=== PATIENT | male | born 1965 | race Caucasian/White ===

== ENCOUNTER 2017-09-26 16:05 | Emergency (ER) | payer MEDICAID ==
[2017-09-26] MEDS ORDERED: ASPIRIN 81 MG PO STA (16:17)
[2017-09-26] MEDS ORDERED: MORPHINE SULFATE 2 MG/ML SYRINGE IVP STA (16:17)
[2017-09-26] MEDS ORDERED: NITROGLYCERIN OINT 1 INCH/GM PACKET TOPICAL STA (16:17)
[2017-09-26] MEDS ORDERED: ONDANSETRON 4 MG/2 ML VIAL IVP STA (16:17)
[2017-09-26] MEDS ORDERED: SODIUM CHLORIDE 0.9% 1,000 ML IV STA (16:17)
--- NOTE | 2017-09-26 16:24 | ED ---
Chest Pain HPI - General Chief Complaint: Chest Pain Stated Complaint: Chest pain Time Seen by Provider: 09/26/17 16:11 Source: patient Mode of arrival: ambulatory Limitations: no limitations - History of Present Illness Initial Comments: 15-20 years old male comes in with a chest pressure for about 12 hours now with chest pressure is not affected by exertion he denies any nausea vomiting or shortness of breath. He denies any history of coronary artery disease nor diabetes hypertension denies any tobacco use or any alcohol use. His family history is quite significant for coronary artery disease his dad had [address] mom had hypertension and diabetes and she of pancreatic cancer. Denies any headaches no neck stiffness has chest pressure no shortness of breath no abdominal pain no frequency urgency dysuria no TIA or CVA like symptoms - Related Data Home Medications Medication Instructions Recorded Confirmed No Known Home Medications 09/26/17 09/26/17 Allergies Allergy/AdvReac Type Severity Reaction Status Date / Time No Known Allergies Allergy Verified 09/26/17 16:42 Review of Systems ROS Statement: Those systems with pertinent positive or pertinent negative responses have been documented in the HPI. ROS Other: All systems not noted in ROS Statement are negative. EKG Findings - EKG Comments: EKG Findings:: EKG is normal sinus ventricular rate is 84 GA interval is 136 QRS duration is 94 QT/QTc is 350/413 review of this EKG does not reveal any ST elevation or ST depression noticed a millimeter of ST off the baseline and aVF Past Medical History Past Medical History: No Reported History History of Any Multi-Drug Resistant Organisms: None Reported Past Surgical History: No Surgical Hx Reported Past Psychological History: No Psychological Hx Reported Smoking Status: Never smoker Past Alcohol Use History: None Reported Past Drug Use History: None Reported General Exam - General Exam Comments Initial Comments: General: The patient is awake and alert, in no distress, and does not appear acutely ill. Skin: Skin is warm and dry and no rashes or lesions are noted. Eye: Pupils are equal, round and reactive to light, extra-ocular movements are intact; there is normal conjunctiva bilaterally. Ears, nose, mouth and throat: There are moist mucous membranes and no oral lesions. Neck: The neck is supple, there is no tenderness or JVD. Cardiovascular: There is a regular rate and rhythm. No murmur, rub or gallop is appreciated. Respiratory: To auscultation bilateral, no wheezing no rhonchi no distress respiratory meadows noticed Gastrointestinal: Soft, non-distended, non-tender abdomen without masses or organomegaly noted. There is no rebound or guarding present. Bowel sounds are unremarkable. Back: There is no tenderness to palpation in the midline. There is no obvious deformity. Musculoskeletal: Normal ROM, no tenderness, There is no pedal edema. There is no calf tenderness or swelling. No cords were appreciated. Neurological: CN II-XII intact, Cranial nerves III through XII are intact. There are no obvious motor or sensory deficits. Coordination appears grossly intact. Speech is normal. Psychiatric: Cooperative, appropriate mood & affect, normal judgment. Limitations: no limitations Course Vital Signs 09/26/17 09/26/17 16:08 17:09 Temperature 98.4 F Pulse Rate 91 90 Respiratory 18 16 Rate Blood Pressure 131/83 114/74 O2 Sat by Pulse 98 97 Oximetry Patient is reassessed at term 1717 is the troponin CBC and chemistries are all unremarkable Ideally he needs admission for observation for 3 sets of cardiac markers and cardiology consult His family history especially his dad has a history of heart disease and his mom is diabetic and hypertensive but he has a special care or special needs child at home and his sister Vero our RN in ER said she'll make sure that he see parking worker as outpatient and get the follow- up get started Disposition Clinical Impression: Chest pain, Family history of heart disease Disposition: HOME SELF-CARE Condition: Good Instructions: Chest Pain (ED) Additional Instructions: Advised to take aspirin 81 mg by mouth daily, avoid exertion still cleared by parking worker and numb and nitro 0.4 mg sublingual as needed Is patient prescribed a controlled substance at d/c from ED?: No Referrals: Renny Bee MD [Primary Care Provider] - 1-2 days
[2017-09-26 16:35] LABS: Basophils # (A) 0.1 k/uL (0-0.2); Basophils % (A) 1 %; Eosinophils # (A) 0.3 k/uL (0-0.7); Eosinophils % (A) 3 %; HGB 15.5 gm/dL (13.0-17.5); Lymphocytes % (A) 21 %; MCH 30.9 pg (25.0-35.0); MCHC 34.4 g/dL (31.0-37.0); MCV 89.7 fL (80.0-100.0); Mean Platelet Volume 7.7; Monocytes # (A) 0.5 k/uL (0-1.0); Monocytes % (A) 5 %; Neutrophils # (A) 6.5 k/uL (1.3-7.7); Neutrophils % (A) 69 %; Platelet Count 225 k/uL (150-450); RBC 5.01 m/uL (4.30-5.90); RDW 12.3 % (11.5-15.5); WBC 9.4 k/uL (3.8-10.6)
[2017-09-26 16:45] LABS: ALT 35 U/L (21-72); AST 31 U/L (17-59); Albumin 4.6 g/dL (3.5-5.0); Alkaline Phosphatase 58 U/L (38-126); Amylase 64 U/L (30-110); Anion Gap 11 mmol/L; Blood Urea Nitrogen 14 mg/dL (9-20); Calcium 9.7 mg/dL (8.4-10.2); Carbon Dioxide 21 mmol/L (22-30); Chloride 109 mmol/L (98-107); Glucose 99 mg/dL (74-99); Lipase 57 U/L (23-300); Magnesium 2.1 mg/dL (1.6-2.3); Potassium 4.8 mmol/L (3.5-5.1); Sodium 141 mmol/L (137-145); Total Bilirubin 1.6 mg/dL (0.2-1.3); Total Protein 7.3 g/dL (6.3-8.2)
[2017-09-26 16:46] LABS: Partial Thromboplastin Time 24.6 sec (22.0-30.0); Prothrombin Time 10.2 sec (9.0-12.0)
[2017-09-26 16:47] LABS: Creatine Kinase 85 U/L (55-170)
--- NOTE | 2017-09-26 16:57 | XR ---
EXAMINATION TYPE: XR chest 2V DATE OF EXAM: 09/26/2017 COMPARISON: NONE HISTORY: Chest pressure TECHNIQUE: Frontal and lateral views of the chest are obtained. FINDINGS: There is no focal air space opacity, pleural effusion, or pneumothorax seen. The cardiac silhouette size is within normal limits. The osseous structures are intact. Mild multilevel degener ative changes of the thoracic spine are seen. IMPRESSION: No acute cardiopulmonary process.
[2017-09-26 17:00] LABS: Creatine Kinase MB 0.9 ng/mL (0.0-2.4); Troponin I <0.012 ng/mL (0.000-0.034)
[2017-09-26 17:50] VITALS: BP 115/67; PULSE 94; RESP 18; TEMP 98.9
== END 2017-09-26 17:50 | disposition home or self-care (01) ==
LOC: EC 16:05
DX: R07.9 Chest pain, unspecified (principal); Z82.49 Family history of ischemic heart disease and other diseases of the circulatory system; Z53.20 Procedure and treatment not carried out because of patient's decision for unspecified reasons
CPT/HCPCS: 36415; 71046; 80053; 82150; 82550; 82553; 83690; 83735; 83880; 84484; 85025; 85610; 85730; 93005; 96360; 99285

== ENCOUNTER → 2017-11-16 | Outpatient (CLI) | payer MEDICAID ==
--- NOTE | 2017-11-16 13:01 | ECHOF ---
Referral Reason:E75.2 Other sphingolipidosis R07.89 Chest pain MEASUREMENTS -------- HEIGHT: 185.4 cm WEIGHT: 88.5 kg BP: 108/51 RVIDd: 3.1 cm (< 3.3) IVSd: 1.1 cm (0.6 - 1.1) LVIDd: 4.9 cm (3.9 - 5.3) LVPWd: 1.2 cm (0.6 - 1.1) IVSs: 1.8 cm LVIDs: 3.0 cm LVPWs: 1.5 cm LA Diam: 3.5 cm (2.7 - 3.8) LAESV Index (A-L): 23.99 ml/m Ao Diam: 3.4 cm (2.0 - 3.7) AV Cusp: 2.7 cm (1.5 - 2.6) MV EXCURSION: 23.080 mm (> 18.000) MV EF SLOPE: 132 mm/s (70 - 150) EPSS: 0.5 cm MV E Ray: 0.58 m/s MV DecT: 327 ms MV A Ray: 0.57 m/s MV E/A Ratio: 1.02 RAP: 5.00 mmHg RVSP: 21.28 mmHg FINDINGS -------- Sinus rhythm. This was a technically good study. The left ventricular size is normal. There is borderline concentric left ventricular hypertrophy. Overall left ventricular systolic function is normal with, an EF between 55 - 60 %. The right ventricle is normal in size. Normal LA size by volume 22+/-6 ml/m2. The right atrium is normal in size. The aortic valve is trileaflet and appears structurally normal. The mitral valve is normal. Mild mitral regurgitation is present. Mild tricuspid regurgitation present. Right ventricular systolic pressure is normal at < 35 mmHg. Trace/mild (physiologic) pulmonic regurgitation. The aortic root size is normal. Normal inferior vena cava with normal inspiratory collapse consistent with estimated right atrial pre ssure of 5 mmHg. There is no pericardial effusion. CONCLUSIONS -------- 1. Sinus rhythm. 2. This was a technically good study. 3. The left ventricular size is normal. 4. There is borderline concentric left ventricular hypertrophy. 5. Overall left ventricular systolic function is normal with, an EF between 55 - 60 %. 6. Normal LA size by volume 22+/-6 ml/m2. 7. The aortic valve is trileaflet and appears structurally normal. 8. Mild mitral regurgitation is present. 9. Mild tricuspid regurgitation present. 10. Right ventricular systolic pressure is normal at < 35 mmHg. 11. Trace/mild (physiologic) pulmonic regurgitation. 12. The aortic root size is normal. 13. Normal inferior vena cava with normal inspiratory collapse consistent with estimated right atrial pressure of 5 mmHg. 14. There is no pericardial effusion. ORACLE DBA: Shayy Cota RDCS
--- NOTE | 2017-11-16 14:11 | ECHOS ---
STRESS ECHOCARDIOGRAM INDICATIONS: Physical, family history. MEDICATIONS: None. BASELINE HEART RATE: 81 BASELINE BLOOD PRESSURE: 108/51 MAXIMUM HEART RATE: 164 MAXIMUM BLOOD PRESSURE: 177/73 85% MPHR: 143 100% MPHR: 163 METS: 11.7 MAXIMUM STAGE REACHED: III TOTAL EXERCISE TIME: 10:01 CLINICAL INFORMATION: Baseline rhythm is sinus mechanism, rate of 81, normal axis, intervals, normal echocardiogram. Baseline blood pressure 108/51 mmHg. Patient exercised on Pedro protocol for 10 minutes reaching peak rate of 164 beats per minute which is equal to 99% maximum predicted heart rate. Peak blood pressure 177/73 mmHg. Test was terminated secondary to fatigue, there was no chest pain. Electrocardiographic monitoring revealed no evidence of diagnostic ischemic ST deviation. FINDINGS: Baseline echocardiogram revealed normal wall motion. At peak exercise, there was normal wall motion and augmentation with no hypokinesis or dyskinesis. CONCLUSION: 1. Good exercise tolerance with normal electrocardiographic response to exercise. 2. Normal stress echocardiogram with no evidence of stress-induced ischemia. MMODL / IJN: [id number] /
== END | disposition home or self-care (01) ==
LOC: RADECHMAIN 08:33
PROVIDERS: ATTEND Internal Medicine Interventional Cardiology
DX: R07.89 Other chest pain (principal); I08.1 Rheumatic disorders of both mitral and tricuspid valves
CPT/HCPCS: 93306; 93351